=== PATIENT | male | born 1945 | race Caucasian/White ===

== ENCOUNTER 2016-05-03 09:18 | Outpatient (CLI) | payer MEDICARE | END 2016-05-03 09:19 | disposition home or self-care (01) | DX: F10.10 Alcohol abuse, uncomplicated (principal); I10 Essential (primary) hypertension; E78.5 Hyperlipidemia, unspecified; R97.20 Elevated prostate specific antigen [PSA] ==

== ENCOUNTER 2018-01-29 09:23 | Outpatient (CLI) | payer MEDICARE ==
[2018-01-29 17:23] LABS: HGB - HEMOGLOBIN 14.3 g/dL (14.0-18.0); MEAN CORPUSCULAR HEMOGLOBIN 35.6 pg (27.0-31.0); MEAN CORPUSCULAR HGB CONC 33.8 g/dL (32.0-36.0); MEAN CORPUSCULAR VOLUME 105.2 fL (80.0-94.0); MEAN PLATELET VOLUME 8.4 fL (7.4-11.4); RED BLOOD COUNT 4.02 10^6/uL (4.70-6.10); RED CELL DISTRIBUTION WIDTH 13.2 % (12.0-15.0); WHITE BLOOD COUNT 10.3 x10^3/uL (4.8-10.8)
[2018-01-29 17:53] LABS: BUN - BLOOD UREA NITROGEN 18 mg/dL (6-20); CALCIUM 9.5 mg/dL (8.5-10.3); CARBON DIOXIDE - CO2 27 mmol/L (21-32); CHLORIDE 98 mmol/L (101-111); CHOL/HDL RATIO 2.1 (<5.0); CHOLESTEROL 181 mg/dL; CREATININE 0.7 mg/dL (0.6-1.2); GFR - MDRD 111 (>89); GLUCOSE 70 mg/dL (70-100); HDL CHOLESTEROL 85 mg/dL; LDL CHOLESTEROL,CALCULATED 82 mg/dL; MAGNESIUM 1.9 mg/dL (1.7-2.8); SODIUM 138 mmol/L (135-145); VLDL CHOLESTEROL 14 mg/dL
== END 2018-01-29 09:24 | disposition home or self-care (01) ==
LOC: LAB.F 09:23
PROVIDERS: ATTEND Internal Medicine
DX: I10 Essential (primary) hypertension (principal); E78.5 Hyperlipidemia, unspecified; G47.62 Sleep related leg cramps
CPT/HCPCS: 36415; 80048; 80061; 83721; 83735; 84443; 85027

== ENCOUNTER 2018-09-09 09:21 | Outpatient (CLI) | payer MEDICARE ==
[2018-09-09 18:14] LABS: ALBUMIN 4.4 g/dL (3.2-5.5); ALBUMIN/GLOBULIN RATIO 1.2 (1.0-2.2); ALKALINE PHOSPHATASE 74 IU/L (42-121); ALT ALANINE AMINOTRANSFERASE 22 IU/L (10-60); AST ASPARTATE AMINOTRANSFERASE 28 IU/L (10-42); BILIRUBIN,TOTAL 0.8 mg/dL (0.2-1.0); BUN - BLOOD UREA NITROGEN 13 mg/dL (6-20); CALCIUM 9.8 mg/dL (8.5-10.3); CARBON DIOXIDE - CO2 27 mmol/L (21-32); CHLORIDE 103 mmol/L (101-111); CHOLESTEROL 190 mg/dL; CREATININE 0.6 mg/dL (0.6-1.2); GFR - MDRD 133 (>89); GLUCOSE 87 mg/dL (70-100); HDL CHOLESTEROL 95 mg/dL; LDL CHOLESTEROL,CALCULATED 80 mg/dL; LDL/HDL RATIO 0.8 (<3.6); SODIUM 143 mmol/L (135-145); VLDL CHOLESTEROL 15 mg/dL
[2018-09-09 18:17] LABS: PSA FREE 0.68 ng/mL (0.16-2.81)
[2018-09-09 18:18] LABS: PSA TOTAL 5.98 ng/mL (0.000-2.000)
== END 2018-09-09 09:22 | disposition home or self-care (01) ==
LOC: LAB.F 09:21
PROVIDERS: ATTEND Internal Medicine
DX: E78.5 Hyperlipidemia, unspecified (principal); N40.1 Benign prostatic hyperplasia with lower urinary tract symptoms
CPT/HCPCS: 36415; 80053; 80061; 83721; 84153; 84154

== ENCOUNTER 2020-12-05 10:43 | Outpatient (CLI) | payer MEDICARE ==
[2020-12-05 14:33] LABS: BASOPHILS # (AUTO) 0.1 10^3/uL (0.0-0.1); EOSINOPHILS # (AUTO) 0.1 10^3/uL (0.0-0.7); EOSINOPHILS % (AUTO) 1.5 %; HCT - HEMATOCRIT 41.6 % (42.0-52.0); LYMPHOCYTES # (AUTO) 1.5 10^3/uL (1.5-3.5); LYMPHOCYTES % (AUTO) 20.6 %; MEAN CORPUSCULAR HEMOGLOBIN 35.4 pg (27.0-31.0); MEAN CORPUSCULAR HGB CONC 33.7 g/dL (32.0-36.0); MEAN CORPUSCULAR VOLUME 105.1 fL (80.0-94.0); MEAN PLATELET VOLUME 9.9 fL (7.4-11.4); MONOCYTES # (AUTO) 0.8 10^3/uL (0.0-1.0); MONOCYTES % (AUTO) 10.7 %; NEUTROPHILS # (AUTO) 4.7 10^3/uL (1.5-6.6); NEUTROPHILS % (AUTO) 65.8 %; PLT - PLATELET COUNT 190 10^3/uL (130-450); RED BLOOD COUNT 3.96 10^6/uL (4.70-6.10); RED CELL DISTRIBUTION WIDTH 12.8 % (12.0-15.0); WHITE BLOOD COUNT 7.2 x10^3/uL (4.8-10.8)
[2020-12-05 14:50] LABS: ALBUMIN 4.6 g/dL (3.2-5.5); ALBUMIN/GLOBULIN RATIO 1.6 (1.0-2.2); ALKALINE PHOSPHATASE 67 IU/L (42-121); ALT ALANINE AMINOTRANSFERASE 30 IU/L (10-60); AST ASPARTATE AMINOTRANSFERASE 44 IU/L (10-42); BILIRUBIN,TOTAL 0.8 mg/dL (0.2-1.0); BUN - BLOOD UREA NITROGEN 13 mg/dL (6-20); CALCIUM 9.3 mg/dL (8.5-10.3); CARBON DIOXIDE - CO2 30 mmol/L (21-32); CHLORIDE 99 mmol/L (101-111); CHOL/HDL RATIO 2.1 (<5.0); CHOLESTEROL 205 mg/dL; CREATININE 0.5 mg/dL (0.6-1.2); GFR - MDRD 163 (>89); GLUCOSE 92 mg/dL (70-100); HDL CHOLESTEROL 99 mg/dL; LDL CHOLESTEROL,CALCULATED 87 mg/dL; LDL/HDL RATIO 0.9 (<3.6); POTASSIUM 3.7 mmol/L (3.5-5.0); SODIUM 140 mmol/L (135-145); TOTAL PROTEIN 7.5 g/dL (6.7-8.2); TRIGLYCERIDES 93 mg/dL; VLDL CHOLESTEROL 19 mg/dL
== END 2020-12-05 10:44 | disposition home or self-care (01) ==
LOC: LAB.S 10:43
PROVIDERS: ATTEND Internal Medicine
DX: I10 Essential (primary) hypertension (principal); E78.5 Hyperlipidemia, unspecified; Z12.5 Encounter for screening for malignant neoplasm of prostate
CPT/HCPCS: 36415; 80053; 80061; 85025; G0103; 83721; 84153